=== PATIENT | female | born 1955 | race Caucasian/White ===

== ENCOUNTER 2016-09-03 13:39 | Emergency (ER) | payer BC ==
[~2016-09-03] VITALS: Ht 157.5 cm; Wt 80.5 kg
[2016-09-03] MEDS ORDERED: VICTOZA6 MG/ML SQ (13:59)
[2016-09-03] MEDS ORDERED: GLUCOPHAGE XR500 M1 PO (13:59)
[2016-09-03] MEDS ORDERED: DEPAKOTE ER 50500 MG PO (14:00)
[2016-09-03 14:29] LABS: MEAN CELL VOLUME 63 fl (80.0-100.0); MEAN CORPUSCULAR HGB CONC 31 g/dl (33.0-37.0); PLATELET COUNT 329 K/mm3 (130-400); RED BLOOD COUNT 4.95 M/mm3 (4.10-5.30); REDCELL DISTRIBUTION WIDTH-CV 15.5 % (11.5-14.5); WHITE BLOOD COUNT 5.9 K/mm3 (4.8-10.8)
[2016-09-03 14:32] LABS: HEMATOCRIT 31.1 % (37.0-47.0); HEMOGLOBIN 9.7 g/dl (12.5-16.0); MEAN CORPUSCULAR HEMOGLOBIN 20 pg (27.0-31.0)
[2016-09-03 14:41] LABS: ADJUSTED CALCIUM 9.8 mg/dL (8.4-10.2); ALANINE AMINOTRANSFERASE 55 U/L (9-52); ALBUMIN 4.2 gm/dL (3.5-5.0); ALKALINE PHOSPHATASE 77 U/L (50-136); ANION GAP 14 mmol/L (7-16); BILIRUBIN,TOTAL 0.7 mg/dL (0.0-1.0); BLOOD UREA NITROGEN 13 mg/dL (7-17); CARBON DIOXIDE 28 mmol/L (22-30); CHLORIDE 98 mmol/L (98-107); CREATININE, serum 0.66 mg/dL (0.52-1.25); GLUCOSE 148 mg/dL (74-106); MAGNESIUM 1.7 mg/dL (1.6-2.3); POTASSIUM 3.8 mmol/L (3.4-5.0); SODIUM 140 mmol/L (137-145); TOTAL PROTEIN 7.5 gm/dL (6.4-8.2)
[2016-09-03 14:55] LABS: TROPONIN-I < 0.012 ng/mL (0.000-0.034)
[2016-09-03 14:56] LABS: ADD PATHOLOGY DIFF REVIEW NO
[2016-09-03 14:59] LABS: BAND 1 % (0-10); EOSINOPHIL 4 % (0-4); HYPOCHROMIA 3+; MICROCYTOSIS 3+; NEUTROPHILS 64 % (42.0-75.2); POLYCHROMASIA 1+; TOTAL CELLS COUNTED 100
[2016-09-03] MEDS ORDERED: ASPIRIN E.C. 8181 MG PO (15:22)
[2016-09-03] MEDS ORDERED: INDERAL LA 60MG60 MG PO (16:24)
[2016-09-03 17:15] VITALS: BP 138/82; PULSE 72
== END 2016-09-03 17:15 | disposition home or self-care (01) ==
LOC: COL.ER 13:39
PROVIDERS: Emergency Medicine
DX: R00.2 Palpitations (principal); R00.0 Tachycardia, unspecified; S92.411A Displaced fracture of proximal phalanx of right great toe, initial encounter for closed fracture; X58.XXXA Exposure to other specified factors, initial encounter